=== PATIENT | female | born 1980 | race Caucasian/White ===

== ENCOUNTER 2022-02-03 14:46 | Emergency (ER) | payer SELFPAY ==
[2022-02-03] MEDS ORDERED: Ketorolac 30 MG/ML SDV IM ONE (15:19)
== END 2022-02-03 16:40 | disposition home or self-care (01) ==
LOC: JD.ED 14:46
DX: M54.42 Lumbago with sciatica, left side (principal); Z72.0 Tobacco use
CPT/HCPCS: 96372; 99283; J1885; 99284

== ENCOUNTER 2022-06-05 10:20 | Emergency (ER) | payer BC | END 2022-06-05 11:35 | disposition home or self-care (01) | LOC: JD.ED 10:20 | DX: M54.6 Pain in thoracic spine (principal); F17.210 Nicotine dependence, cigarettes, uncomplicated | CPT/HCPCS: 99282; 99283 ==

== ENCOUNTER 2022-08-13 20:03 | Emergency (ER) | payer BC ==
[2022-08-13] MEDS ORDERED: Sodium Chloride 0.9% 10 ML Syringe FLUSH PRN (20:33)
[2022-08-13] MEDS ORDERED: LORazepam 2 MG/ML SDV IVPUSH ONE (20:34)
[2022-08-13] MEDS ORDERED: levETIRAcetam 500 MG Tab PO ONE (22:48)
[2022-08-13] MEDS ORDERED: HYDROmorphone 0.5 MG/0.5 ML Syringe IVPUSH ONE (22:48)
== END 2022-08-14 00:02 | disposition home or self-care (01) ==
LOC: JD.ED 20:03 → SUPCPDRO 20:03 → JD.ED 08-14 00:02
DX: R56.9 Unspecified convulsions (principal); F17.210 Nicotine dependence, cigarettes, uncomplicated
CPT/HCPCS: 36415; 70450; 80053; 83735; 85025; 96374; 96375; 99285; A9270; J1170; J2060; 99284

== ENCOUNTER 2022-08-28 17:34 | Emergency (ER) | payer BC ==
[2022-08-28] MEDS ORDERED: LORazepam 2 MG/ML SDV ONE (17:46)
[2022-08-28] MEDS ORDERED: Sodium Chloride 0.9% 1,000 ML ONE (17:46)
[2022-08-28] MEDS ORDERED: Sodium Chloride 0.9% 1,000 ML IV ONE (17:50)
[2022-08-28] MEDS ORDERED: LORazepam 2 MG/ML SDV IVPUSH ONE (17:51)
[2022-08-28 18:37] LABS: ESTIMATED GFR 65 mL/min (>60)
[2022-08-28] MEDS ORDERED: levETIRAcetam 500 MG/5 ML SDV ONE (19:42)
[2022-08-28] MEDS ORDERED: Sodium Chloride 0.9% 100 ML ONE (19:46)
[2022-08-28] MEDS ORDERED: levETIRAcetam 1,000 MG in Sodium Chloride 0.9% 100 ML IV ONE (19:50)
== END 2022-08-28 21:58 | disposition home or self-care (01) ==
LOC: JD.ED 17:34
DX: S00.83XA Contusion of other part of head, initial encounter (principal); G40.909 Epilepsy, unspecified, not intractable, without status epilepticus; F41.9 Anxiety disorder, unspecified; W19.XXXA Unspecified fall, initial encounter
CPT/HCPCS: 36415; 70450; 71045; 80053; 82550; 83605; 85025; 93005; 96361; 96365; 96375; 99284; J1953; J2060; J7030

== ENCOUNTER 2022-09-19 22:20 | Emergency (ER) | payer BC ==
[2022-09-19] MEDS ORDERED: Sodium Chloride 0.9% 10 ML Syringe FLUSH PRN (22:38)
[2022-09-19] MEDS ORDERED: LORazepam 2 MG/ML SDV IVPUSH ONE (22:41)
[2022-09-19] MEDS ORDERED: Sodium Chloride 0.9% 1,000 ML IV SCH (22:45)
[2022-09-20] MEDS ORDERED: levETIRAcetam 1,000 MG in Sodium Chloride 0.9% 100 ML IV ONE (00:08)
== END 2022-09-20 05:59 | disposition home or self-care (01) ==
LOC: JD.ED 22:20
DX: S02.2XXA Fracture of nasal bones, initial encounter for closed fracture (principal); F17.210 Nicotine dependence, cigarettes, uncomplicated
CPT/HCPCS: 12011; 36415; 70450; 70486; 80053; 80307; 83735; 85025; 96361; 96365; 96375; 99285; J1953; J2060; J3490; J7030; 99284

== ENCOUNTER 2023-02-04 17:46 | Inpatient (IN) | payer MEDICAID ==
[2023-02-04] MEDS ORDERED: Ondansetron 4 MG/2 ML SDV IVPUSH ONE (18:36)
[2023-02-04] MEDS ORDERED: HYDROmorphone 1 MG/ML Syringe IVPUSH STA (18:36)
[2023-02-04] MEDS ORDERED: Iopamidol 612 MG/ML 100 ML Bottle IVPUSH ONE (18:49)
[2023-02-04] MEDS ORDERED: Sodium Chloride 0.9% 10 ML SDV FLUSH ONE (18:49)
[2023-02-04] MEDS: Sodium Chloride 0.9% 1,000 ML IV SCH (19:31)
[2023-02-04] MEDS ORDERED: cefOXitin 2 GM in Sodium Chloride 0.9% 50 ML IV ONE (21:15)
[2023-02-04] MEDS ORDERED: cefTRIAXone 2 GM in Sodium Chloride 0.9% 100 ML IV ONE ×2 (21:25→23:15)
[2023-02-04] MEDS ORDERED: metroNIDAZOLE/Normal Saline 500 MG in Premix Bag 1 BAG IV ONE (21:30)
[2023-02-04] MEDS: Doxycycline 100 MG in Sodium Chloride 0.9% 100 ML IV SCH (21:40)
[2023-02-04 22:49] LABS: C. TRACHOMATIS BY PCR DETECTED; N. GONORRHOEAE BY PCR NOT DETECTED
[2023-02-04] MEDS ORDERED: Morphine 2 MG/ML SYRINGE IVPUSH PRN (23:26)
[2023-02-04] MEDS: cefOXitin 2 GM in Sodium Chloride 0.9% 50 ML IV ONE ×2 (23:39→23:48)
[2023-02-05] MEDS ORDERED: HYDROmorphone 0.5 MG/0.5 ML Syringe IVPUSH PRN (02:02)
[2023-02-05] MEDS: Sodium Chloride 0.9% 1,000 ML IV SCH ×3 (02:17→15:46)
[2023-02-05] MEDS ORDERED: cefOXitin 2 GM in Sodium Chloride 0.9% 50 ML IV SCH ×2 (03:00→05:45)
[2023-02-05] MEDS: HYDROmorphone 1 MG/ML Syringe IVPUSH PRN (05:28)
[2023-02-05] MEDS: Ketorolac 30 MG/ML SDV IVPUSH SCH ×3 (08:16→20:12)
[2023-02-05] MEDS: busPIRone 5 MG Tab PO SCH ×2 (08:41→20:13)
[2023-02-05] MEDS: Gabapentin 300 MG Cap PO SCH ×2 (08:42→20:13)
[2023-02-05] MEDS: Enoxaparin 30 MG/0.3 ML Syringe SUBCUT SCH (08:42)
[2023-02-05] MEDS: Doxycycline 100 MG in Sodium Chloride 0.9% 100 ML IV SCH ×2 (08:42→20:13)
[2023-02-05] MEDS: metroNIDAZOLE/Normal Saline 500 MG in Premix Bag 1 BAG IV SCH ×2 (08:42→20:14)
[2023-02-05] MEDS ORDERED: Nicotine 14 MG/24 Hr Patch TRDERM ONE (09:00)
[2023-02-05] MEDS ORDERED: Docusate Sodium 100 MG Cap PO PRN (09:37)
[2023-02-05] MEDS: Acetaminophen/oxyCODONE 325-5 MG Tab PO PRN (11:30)
[2023-02-05] MEDS: cefOXitin 2 GM in Sodium Chloride 0.9% 50 ML IV SCH ×3 (11:32→23:29)
[2023-02-05] MEDS: Ondansetron 4 MG/2 ML SDV IVPUSH PRN (17:32)
[2023-02-06] MEDS ORDERED: Ibuprofen 600 MG Tab PO PRN (02:00)
[2023-02-06] MEDS: Acetaminophen/oxyCODONE 325-5 MG Tab PO PRN ×3 (02:42→20:06)
[2023-02-06] MEDS: cefOXitin 2 GM in Sodium Chloride 0.9% 50 ML IV SCH ×4 (05:15→23:30)
[2023-02-06] MEDS: Sodium Chloride 0.9% 1,000 ML IV SCH (06:01)
[2023-02-06] MEDS: metroNIDAZOLE/Normal Saline 500 MG in Premix Bag 1 BAG IV SCH ×2 (08:55→20:05)
[2023-02-06] MEDS: Doxycycline 100 MG in Sodium Chloride 0.9% 100 ML IV SCH ×2 (08:55→20:05)
[2023-02-06] MEDS: busPIRone 5 MG Tab PO SCH ×2 (08:55→20:06)
[2023-02-06] MEDS: Gabapentin 300 MG Cap PO SCH ×2 (08:55→20:06)
[2023-02-06] MEDS: Enoxaparin 30 MG/0.3 ML Syringe SUBCUT SCH (08:55)
[2023-02-06] MEDS: Nicotine 14 MG/24 Hr Patch TRDERM SCH (09:01)
[2023-02-06] MEDS: HYDROmorphone 1 MG/ML Syringe IVPUSH PRN (14:04)
[2023-02-06] MEDS: Ondansetron 4 MG/2 ML SDV IVPUSH PRN (15:38)
[2023-02-06] MEDS ORDERED: Promethazine 25 MG Tab PO PRN (20:32)
[2023-02-07] MEDS: cefOXitin 2 GM in Sodium Chloride 0.9% 50 ML IV SCH ×2 (05:17→11:44)
[2023-02-07] MEDS: Acetaminophen/oxyCODONE 325-5 MG Tab PO PRN ×2 (05:23→13:46)
[2023-02-07] MEDS: Doxycycline 100 MG in Sodium Chloride 0.9% 100 ML IV SCH (08:10)
[2023-02-07] MEDS: Enoxaparin 30 MG/0.3 ML Syringe SUBCUT SCH (08:16)
[2023-02-07] MEDS: busPIRone 5 MG Tab PO SCH (08:17)
[2023-02-07] MEDS: Gabapentin 300 MG Cap PO SCH (08:17)
[2023-02-07] MEDS: metroNIDAZOLE/Normal Saline 500 MG in Premix Bag 1 BAG IV SCH (08:19)
[2023-02-07] MEDS: Nicotine 14 MG/24 Hr Patch TRDERM SCH (13:56)
[2023-02-08] MEDS ORDERED: Enoxaparin 40 MG/0.4 ML Syringe SUBCUT SCH (09:00)
== END 2023-02-07 17:26 | disposition left against medical advice (07) | DRG 758 ==
LOC: JD.ED 17:46 → JD.MS 21:20
PROVIDERS: ADMIT Obstetrics & Gynecology; ATTEND Obstetrics & Gynecology
DX: N73.0 Acute parametritis and pelvic cellulitis (principal); E87.1 Hypo-osmolality and hyponatremia; A56.8 Sexually transmitted chlamydial infection of other sites; N70.93 Salpingitis and oophoritis, unspecified; F41.9 Anxiety disorder, unspecified; F32.A Depression, unspecified; M54.9 Dorsalgia, unspecified; G89.29 Other chronic pain; R56.9 Unspecified convulsions; F17.210 Nicotine dependence, cigarettes, uncomplicated; Z79.899 Other long term (current) drug therapy
CPT/HCPCS: 36415; 51702; 74177; 74177-26; 76830; 76830-26; 80053; 80307; 83690; 83735; 85025; 87040; 87491; 87591; 96361; 96365; 96368; 96375; 99284; 99285-25; A9270-GY; J0694; J1170; J1650; J1885; J2270; J2405; J3490; J7030; J8597; Q9967

== ENCOUNTER 2023-02-17 12:34 | Emergency (ER) | payer MEDICAID ==
[2023-02-17] MEDS ORDERED: HYDROmorphone 0.5 MG/0.5 ML Syringe IVPUSH ONE (14:02)
[2023-02-17] MEDS ORDERED: Ondansetron 4 MG/2 ML SDV IVPUSH ONE (14:02)
[2023-02-17] MEDS ORDERED: Sodium Chloride 0.9% 1,000 ML IV SCH (14:15)
[2023-02-17] MEDS ORDERED: Sodium Chloride 0.9% 10 ML Syringe FLUSH ONE (14:46)
[2023-02-17 15:19] LABS: ESTIMATED GFR 73 mL/min (>60)
== END 2023-02-17 17:11 | disposition home or self-care (01) ==
LOC: JD.ED 12:34
DX: R10.84 Generalized abdominal pain (principal); F17.290 Nicotine dependence, other tobacco product, uncomplicated
CPT/HCPCS: 36415; 76830; 80053; 80307; 81001; 81025; 83690; 83735; 85007; 85027; 86140; 96361; 96374; 96375; 99284; J1170; J2405; J3490; J7030

== ENCOUNTER 2023-02-19 18:06 | Emergency (ER) | payer MEDICAID ==
[2023-02-19] MEDS ORDERED: HYDROmorphone 0.5 MG/0.5 ML Syringe IVPUSH ONE (18:53)
[2023-02-19] MEDS ORDERED: Sodium Chloride 0.9% 1,000 ML IV ONE (18:53)
[2023-02-19] MEDS ORDERED: Ondansetron 4 MG/2 ML SDV IVPUSH ONE (18:53)
[2023-02-19] MEDS ORDERED: Iopamidol 612 MG/ML 100 ML Bottle IVPUSH ONE (19:31)
[2023-02-19] MEDS ORDERED: Sodium Chloride 0.9% 10 ML Syringe FLUSH ONE (19:31)
== END 2023-02-19 21:25 | disposition home or self-care (01) ==
LOC: JD.ED 18:06
DX: R10.2 Pelvic and perineal pain (principal); M54.50 Low back pain, unspecified; R10.9 Unspecified abdominal pain; M79.601 Pain in right arm; M79.602 Pain in left arm; Z79.899 Other long term (current) drug therapy
CPT/HCPCS: 36415; 74177; 80053; 81001; 85025; 96361; 96374; 96375; 99284; J1170; J2405; J3490; J7030; Q9967

== ENCOUNTER 2023-04-17 18:38 | Emergency (ER) | payer MEDICAID ==
[2023-04-17] MEDS ORDERED: LORazepam 2 MG/ML SDV IVPUSH STA (19:16)
== END 2023-04-17 20:57 | disposition left against medical advice (07) ==
LOC: JD.ED 18:38
DX: G89.29 Other chronic pain (principal); M54.50 Low back pain, unspecified; F10.929 Alcohol use, unspecified with intoxication, unspecified; F17.210 Nicotine dependence, cigarettes, uncomplicated
CPT/HCPCS: 96374; 99283; J2060

== ENCOUNTER 2023-04-18 22:52 | Emergency (ER) | payer MEDICAID | END 2023-04-19 01:08 | disposition left against medical advice (07) | LOC: JD.ED 22:52 | DX: Z53.21 Procedure and treatment not carried out due to patient leaving prior to being seen by health care provider (principal) ==

== ENCOUNTER 2023-11-04 15:58 | Inpatient (IN) | payer MEDICAID, OTHER ==
[2023-11-04] MEDS ORDERED: Sodium Chloride 0.9% 10 ML Syringe FLUSH PRN (16:09)
[2023-11-04] MEDS ORDERED: Etomidate 2 MG/ML 20 ML SDV IVPUSH ONE (16:13)
[2023-11-04] MEDS ORDERED: Succinylcholine 200 MG/10 ML MDV IVPUSH ONE (16:13)
[2023-11-04] MEDS ORDERED: Sodium Chloride 0.9% 1,000 ML IV SCH (16:15)
[2023-11-04] MEDS ORDERED: Rocuronium 50 MG/5 ML Vial IVPUSH ONE (16:15)
[2023-11-04] MEDS ORDERED: Midazolam 1 MG/ML 5 ML SDV IVPUSH ONE (16:15)
[2023-11-04 16:19] LABS: BASOPHILS PERCENT AUTO 0.4 % (0.0-1.0); EOSINOPHILS PERCENT AUTO 0.4 % (0.0-6.0); IMMATURE GRAN ABSOLUTE AUTO 0.02 K/mm3 (0.00-0.05); IMMATURE GRAN PERCENT AUTO 0.2 % (0.0-0.4); LYMPHOCYTES ABSOLUTE AUTO 4.1 K/mm3 (1.0-4.8); LYMPHOCYTES PERCENT AUTO 39.1 % (24.0-44.0); MEAN CORPUSCULAR HEMOGLOBIN 32.6 pg (28.0-32.0); MEAN CORPUSCULAR HGB CONC 34.2 g/dl (32.0-36.0); MEAN CORPUSCULAR VOLUME 95.2 fl (83.0-99.0); MEAN PLATELET VOLUME 8.5 fl (9.4-12.3); MONOCYTES ABSOLUTE AUTO 0.3 K/mm3 (0.0-0.8); MONOCYTES PERCENT AUTO 2.6 % (0.0-8.0); NEUTROPHILS ABSOLUTE AUTO 6.1 K/mm3 (1.8-7.7); NEUTROPHILS PERCENT AUTO 57.3 % (41.0-71.0); PLATELET COUNT,PLT 299 K/mm3 (150-400); RED BLOOD CELL COUNT 3.99 M/mm3 (4.10-5.30); WHITE BLOOD CELL COUNT,WBC 10.58 K/mm3 (3.9-11.3)
[2023-11-04] MEDS: propofoL 100 ML IV SCH ×2 (16:19→23:20)
[2023-11-04 16:38] LABS: INR 1.15; PROTHROMBIN TIME 12.2 SECONDS (9.7-12.0)
[2023-11-04] MEDS ORDERED: Rocuronium 50 MG/5 ML Vial ONE (16:50)
[2023-11-04] MEDS ORDERED: Midazolam 1 MG/ML 5 ML SDV ONE (16:50)
[2023-11-04 17:08] LABS: BICARBONATE,ARTERIAL 21.6 meq/L (22.0-26.0); O2 SATURATION ARTERIAL 97.3 % (96.0-97.0); PCO2 ARTERIAL 39.3 mmHg (35.0-45.0)
[2023-11-04 17:16] LABS: BARBITURATE SCREEN,URINE NEGATIVE (CUTOFF=200); BENZODIAZEPINES SCREEN,URINE NEGATIVE (CUTOFF=150); BUPRENORPHINE SCREEN,URINE NEGATIVE (CUTOFF=10); METHADONE SCREEN, URINE NEGATIVE (CUTOFF=200); METHAMPHETAMINES SCREEN, URINE NEGATIVE (CUTOFF=500); OXYCODONE SCREEN,URINE NEGATIVE (CUT0FF=100); THC SCREEN,URINE 20 NG/ML PRESUMPTIVE POSITIVE (CUTOFF=50)
[2023-11-04 17:20] LABS: AMPHETAMINES SCREEN, URINE NEGATIVE (CUTOFF=500)
[2023-11-04 17:23] LABS: APPEARANCE,URINE CLEAR (Clear); BILIRUBIN,URINE NEGATIVE (Negative); COLOR,URINE LIGHT YELLOW (Yellow); GLUCOSE,URINE NEGATIVE (Negative); KETONES,URINE NEGATIVE (Negative); LEUKOCYTE ESTERASE,URINE NEGATIVE (Negative); NITRITE,URINE NEGATIVE (Negative); OCCULT BLOOD,URINE TRACE-INTACT (Negative); PH,URINE 6.5 (5.0-8.0); PROTEIN,URINE NEGATIVE (Negative); UROBILINOGEN,URINE 0.2 (0.2-1.0)
[2023-11-04 17:30] LABS: BACTERIA,URINE FEW /hpf (FEW); MUCUS,URINE FEW /hpf (FEW); RBC,URINE 0-5 /hpf (0-5); SQUAMOUS EPITHELIAL CELLS,UR 0-5 /hpf (0-5); WBC,URINE 0-5 /hpf (0-5)
[2023-11-04 17:58] LABS: ALANINE AMINOTRANSFERASE,ALT 19 U/L (14-59); ALBUMIN 3.9 g/dl (3.4-5.0); ALKALINE PHOSPHATASE 41 U/L (46-116); ANION GAP 15.8 (5-15); ASPARTATE AMNIOTRANSFERASE,AST 22 U/L (15-37); BILIRUBIN TOTAL 1.1 mg/dL (0.2-1.0); BLOOD UREA NITROGEN,BUN 11 mg/dL (7-18); BUN/CREATININE RATIO 18.3 (14-18); C-REACTIVE PROTEIN <0.2 mg/dL (<1.0); CALCIUM 8.3 mg/dL (8.5-10.1); CARBON DIOXIDE,CO2 24 mEq/L (21-32); CHLORIDE,CL 106 mEq/L (98-107); CREATININE 0.6 mg/dL (0.55-1.02); EST CRCL DRUG DOSING (CG) 119.99 mL/min; ESTIMATED GFR 116 mL/min (>60); ETHANOL BLOOD MEDICAL 0.26 gm% (0.00); GLUCOSE RANDOM 98 mg/dL (70-99); LIPASE 31 U/L (16-77); MAGNESIUM 1.7 mg/dL (1.8-2.4); POTASSIUM,K 3.8 mEq/L (3.5-5.1); PROTEIN TOTAL,TP 7.7 g/dl (6.4-8.2); SODIUM,NA 142 mEq/L (136-145); TROPONIN I HIGH SENSITIVITY 7 pg/mL (<=51)
[2023-11-04 18:01] LABS: ACETAMINOPHEN 0 ug/mL (10-30)
[2023-11-04] MEDS ORDERED: Thiamine 200 MG/2 ML MDV IVPUSH ONE (19:32)
[2023-11-04] MEDS ORDERED: Dextrose 5%-0.9% NaCl with KCl 1,000 ML IV SCH (19:45)
[2023-11-04] MEDS: Midazolam 50 MG in Sodium Chloride 0.9% 40 ML IV SCH (19:58)
[2023-11-04] MEDS: Pantoprazole 40 MG Vial IVPUSH ONE ×2 (20:44→21:00)
[2023-11-04] MEDS ORDERED: Pantoprazole 40 MG Vial IVPUSH ONE (20:58)
[2023-11-04 21:16] LABS: BASE EXCESS ARTERIAL -0.4 (-2-2.0); BICARBONATE,ARTERIAL 23.7 meq/L (22.0-26.0); O2 SATURATION ARTERIAL 99.4 % (96.0-97.0); PCO2 ARTERIAL 38.9 mmHg (35.0-45.0)
[2023-11-05] MEDS: propofoL 100 ML IV SCH ×2 (01:57→04:51)
[2023-11-05] MEDS: Midazolam 50 MG in Sodium Chloride 0.9% 40 ML IV SCH (04:57)
[2023-11-05 05:41] LABS: BASE EXCESS ARTERIAL -0.5 (-2-2.0); BICARBONATE,ARTERIAL 23.7 meq/L (22.0-26.0); O2 SATURATION ARTERIAL 95.7 % (96.0-97.0); PCO2 ARTERIAL 39.5 mmHg (35.0-45.0)
[2023-11-05 06:27] LABS: HEMATOCRIT 40.4 % (37.0-47.0); HEMOGLOBIN 14.5 gm/dl (12.0-16.0); MEAN CORPUSCULAR HEMOGLOBIN 33.1 pg (28.0-32.0); MEAN CORPUSCULAR HGB CONC 35.9 g/dl (32.0-36.0); MEAN CORPUSCULAR VOLUME 92.2 fl (83.0-99.0); MEAN PLATELET VOLUME 8.6 fl (9.4-12.3); PLATELET COUNT,PLT 290 K/mm3 (150-400); RED BLOOD CELL COUNT 4.38 M/mm3 (4.10-5.30); WHITE BLOOD CELL COUNT,WBC 19.61 K/mm3 (3.9-11.3)
[2023-11-05 07:29] LABS: A/G RATIO 1.2 (1-2); ALBUMIN 3.6 g/dl (3.4-5.0); ANION GAP 16.4 (5-15); BILIRUBIN TOTAL 0.8 mg/dL (0.2-1.0); CALCIUM 8.1 mg/dL (8.5-10.1); CREATININE 0.8 mg/dL (0.55-1.02); EST CRCL DRUG DOSING (CG) 78.86 mL/min; MAGNESIUM 1.6 mg/dL (1.8-2.4); POTASSIUM,K 3.4 mEq/L (3.5-5.1); PROTEIN TOTAL,TP 6.6 g/dl (6.4-8.2)
[2023-11-05] MEDS ORDERED: D5 1/2 NS w/ 20 mEq/L KCl 1,000 ML IV SCH (07:45)
[2023-11-05] MEDS ORDERED: Magnesium Sulfate/Water 2 GM in Premix Bag 1 BAG IV ONE (07:45)
[2023-11-05] MEDS: Pantoprazole 40 MG Vial IVPUSH SCH ×2 (08:09→19:19)
[2023-11-05] MEDS ORDERED: fentaNYL 100 MCG/2 ML SDV IVPUSH STA (08:21)
[2023-11-05] MEDS ORDERED: Thiamine 200 MG/2 ML MDV IVPUSH SCH (09:00)
[2023-11-05] MEDS ORDERED: Thiamine 200 MG in Sodium Chloride 0.9% 100 ML IV SCH (09:00)
[2023-11-05 09:36] LABS: BASE EXCESS ARTERIAL -1.3 (-2-2.0); BICARBONATE,ARTERIAL 22.2 meq/L (22.0-26.0); O2 SATURATION ARTERIAL 93.9 % (96.0-97.0); PCO2 ARTERIAL 35.3 mmHg (35.0-45.0)
[2023-11-05] MEDS ORDERED: Alum Hydrox/Mag Hydrox/Simeth 30 ML, Lidocaine 2% 15 ML PO ONE ×2 (11:06)
[2023-11-05] MEDS: Benzocaine/Cetylpyridinium/Menthol Lozenge MUCMEM PRN ×2 (11:26→19:19)
[2023-11-05] MEDS ORDERED: Carboxymethylcellulose Sodium 1% Ophth Gel 15 ML Bottle EYELF PRN (11:44)
[2023-11-05] MEDS: Acetaminophen 325 MG Tab PO PRN ×2 (13:26→19:19)
[2023-11-05 14:43] LABS: ANION GAP 14.6 (5-15); CREATININE 0.9 mg/dL (0.55-1.02); EST CRCL DRUG DOSING (CG) 70.1 mL/min; POTASSIUM,K 3.6 mEq/L (3.5-5.1)
[2023-11-05] MEDS: oxyCODONE 5 MG Tab PO PRN (16:41)
[2023-11-05] MEDS: Nicotine 14 MG/24 Hr Patch TRDERM SCH (17:55)
[2023-11-05] MEDS: Folic Acid 1 MG Tab PO SCH (18:43)
[2023-11-05] MEDS ORDERED: LORazepam 2 MG/ML SDV IVPUSH PRN (19:01)
[2023-11-05] MEDS: Topiramate 25 MG Tab PO SCH (20:16)
[2023-11-06] MEDS: oxyCODONE 5 MG Tab PO PRN ×3 (00:48→16:28)
[2023-11-06] MEDS: Benzocaine/Cetylpyridinium/Menthol Lozenge MUCMEM PRN ×2 (00:50→16:05)
[2023-11-06 05:24] LABS: HEMATOCRIT 36.7 % (37.0-47.0); HEMOGLOBIN 13.1 gm/dl (12.0-16.0); MEAN CORPUSCULAR HEMOGLOBIN 33.2 pg (28.0-32.0); MEAN CORPUSCULAR HGB CONC 35.7 g/dl (32.0-36.0); MEAN CORPUSCULAR VOLUME 92.9 fl (83.0-99.0); MEAN PLATELET VOLUME 8.8 fl (9.4-12.3); PLATELET COUNT,PLT 200 K/mm3 (150-400); RED BLOOD CELL COUNT 3.95 M/mm3 (4.10-5.30); WHITE BLOOD CELL COUNT,WBC 14.05 K/mm3 (3.9-11.3)
[2023-11-06 06:12] LABS: A/G RATIO 0.9 (1-2); ANION GAP 10.5 (5-15); BILIRUBIN TOTAL 1.6 mg/dL (0.2-1.0); BUN/CREATININE RATIO 11.4 (14-18); CALCIUM 8.4 mg/dL (8.5-10.1); CREATININE 0.7 mg/dL (0.55-1.02); EST CRCL DRUG DOSING (CG) 90.12 mL/min; MAGNESIUM 1.9 mg/dL (1.8-2.4); POTASSIUM,K 3.5 mEq/L (3.5-5.1); PROTEIN TOTAL,TP 6.2 g/dl (6.4-8.2)
[2023-11-06] MEDS: Folic Acid 1 MG Tab PO SCH (08:13)
[2023-11-06] MEDS: Topiramate 25 MG Tab PO SCH ×2 (08:13→20:00)
[2023-11-06] MEDS: Pantoprazole 40 MG Tab.CR PO SCH ×2 (08:13→16:05)
[2023-11-06] MEDS: Nicotine 14 MG/24 Hr Patch TRDERM SCH (08:14)
[2023-11-06] MEDS: Acetaminophen 325 MG Tab PO PRN ×2 (08:14→16:27)
[2023-11-06] MEDS ORDERED: DULoxetine 20 MG Cap PO SCH (09:00)
[2023-11-06] MEDS: Cholecalciferol (Vitamin D3) 25 MCG Tab PO SCH (10:48)
[2023-11-06] MEDS ORDERED: Loperamide 2 MG Cap PO PRN (13:26)
[2023-11-06] MEDS ORDERED: methylPREDNISolone Sodium Succinate 125 MG/2 ML SDV IVPUSH ONE (14:54)
[2023-11-06] MEDS ORDERED: Vitamin B6-pyridOXINE 50 MG Tab PO SCH (21:00)
[2023-11-06] MEDS ORDERED: QUEtiapine 25 MG Tab PO SCH (21:00)
[2023-11-06] MEDS ORDERED: fluvoxaMINE 50 MG Tab PO SCH (21:00)
[2023-11-06] MEDS ORDERED: Thiamine 100 MG Tab PO SCH (21:00)
[2023-11-06] MEDS ORDERED: Cyanocobalamin (Vitamin B12) 1,000 MCG Tab PO SCH (21:00)
[2023-11-07] MEDS: oxyCODONE 5 MG Tab PO PRN ×2 (04:41→12:17)
[2023-11-07 04:44] LABS: HEMATOCRIT 35.8 % (37.0-47.0); HEMOGLOBIN 12.7 gm/dl (12.0-16.0); MEAN CORPUSCULAR HEMOGLOBIN 32.8 pg (28.0-32.0); MEAN CORPUSCULAR HGB CONC 35.5 g/dl (32.0-36.0); MEAN CORPUSCULAR VOLUME 92.5 fl (83.0-99.0); MEAN PLATELET VOLUME 9.1 fl (9.4-12.3); PLATELET COUNT,PLT 166 K/mm3 (150-400); RED BLOOD CELL COUNT 3.87 M/mm3 (4.10-5.30); WHITE BLOOD CELL COUNT,WBC 8.19 K/mm3 (3.9-11.3)
[2023-11-07 05:27] LABS: A/G RATIO 0.8 (1-2); ALBUMIN 2.7 g/dl (3.4-5.0); ANION GAP 11.6 (5-15); BILIRUBIN TOTAL 0.7 mg/dL (0.2-1.0); BUN/CREATININE RATIO 11.7 (14-18); CALCIUM 8.4 mg/dL (8.5-10.1); CREATININE 0.6 mg/dL (0.55-1.02); EST CRCL DRUG DOSING (CG) 105.41 mL/min; MAGNESIUM 1.7 mg/dL (1.8-2.4); PROTEIN TOTAL,TP 6.1 g/dl (6.4-8.2)
[2023-11-07 05:39] LABS: POTASSIUM,K 3.6 mEq/L (3.5-5.1)
[2023-11-07] MEDS ORDERED: Magnesium Sulfate/Water 2 GM in Premix Bag 1 BAG IV ONE (05:49)
[2023-11-07] MEDS: Pantoprazole 40 MG Tab.CR PO SCH ×2 (06:26→15:48)
[2023-11-07] MEDS: Topiramate 25 MG Tab PO SCH (08:21)
[2023-11-07] MEDS: Cholecalciferol (Vitamin D3) 25 MCG Tab PO SCH (08:21)
[2023-11-07] MEDS: Folic Acid 1 MG Tab PO SCH (08:21)
[2023-11-07] MEDS: Nicotine 14 MG/24 Hr Patch TRDERM SCH (08:21)
[2023-11-07] MEDS: Acetaminophen 325 MG Tab PO PRN (12:18)
== END 2023-11-07 16:18 | disposition home or self-care (01) | DRG 917 ==
LOC: JD.ED 15:58 → JD.ICU 19:04
PROVIDERS: ADMIT Internal Medicine; ATTEND Internal Medicine
PROC: 0BH17EZ Insertion of Endotracheal Airway into Trachea, Via Natural or Artificial Opening (ICD-10-PCS; principal; 2023-11-04)
PROC: 5A1935Z Respiratory Ventilation, Less than 24 Consecutive Hours (ICD-10-PCS; 2023-11-04)
PROC: 0DH67UZ Insertion of Feeding Device into Stomach, Via Natural or Artificial Opening (ICD-10-PCS; 2023-11-04)
DX: T40.2X2A Poisoning by other opioids, intentional self-harm, initial encounter (principal); J96.01 Acute respiratory failure with hypoxia; F10.221 Alcohol dependence with intoxication delirium; F31.60 Bipolar disorder, current episode mixed, unspecified; G89.29 Other chronic pain; F11.10 Opioid abuse, uncomplicated; T14.91XA Suicide attempt, initial encounter; Z87.440 Personal history of urinary (tract) infections; F41.9 Anxiety disorder, unspecified; F12.20 Cannabis dependence, uncomplicated; F42.2 Mixed obsessional thoughts and acts; F43.10 Post-traumatic stress disorder, unspecified; Z90.89 Acquired absence of other organs; Z98.890 Other specified postprocedural states; Z56.0 Unemployment, unspecified; Y90.0 Blood alcohol level of less than 20 mg/100 ml; Z79.899 Other long term (current) drug therapy
CPT/HCPCS: 31500; 36415; 36600; 43752-52; 51702; 70450; 70450-26; 71045; 71045-26; 80048; 80053; 80143; 80179; 80306; 80307; 81001; 82803; 82947; 83605; 83690; 83735; 84484; 84703; 85018; 85025; 85027; 85610; 86140; 86850; 86900; 86901; 93005; 93010; 94668; 96360; 96361; 97161-GP; 99285-25; 99291; A9270-GY; C9113; J0330; J2250; J2704; J3010; J3411; J3475; J3480; J3490; J7030

== ENCOUNTER 2024-02-23 16:10 | Emergency (ER) | payer SELFPAY ==
[2024-02-23 17:28] LABS: BASOPHILS ABSOLUTE AUTO 0.1 K/mm3 (0.0-0.2); BASOPHILS PERCENT AUTO 0.6 % (0.0-1.0); EOSINOPHILS ABSOLUTE AUTO 0.2 K/mm3 (0.0-0.4); EOSINOPHILS PERCENT AUTO 1.9 % (0.0-6.0); HEMATOCRIT 47.1 % (37.0-47.0); IMMATURE GRAN ABSOLUTE AUTO 0.03 K/mm3 (0.00-0.05); IMMATURE GRAN PERCENT AUTO 0.2 % (0.0-0.4); LYMPHOCYTES ABSOLUTE AUTO 4.8 K/mm3 (1.0-4.8); LYMPHOCYTES PERCENT AUTO 37.6 % (24.0-44.0); MEAN CORPUSCULAR HEMOGLOBIN 32.4 pg (28.0-32.0); MEAN CORPUSCULAR HGB CONC 35.7 g/dl (32.0-36.0); MEAN CORPUSCULAR VOLUME 90.9 fl (83.0-99.0); MEAN PLATELET VOLUME 8.1 fl (9.4-12.3); MONOCYTES ABSOLUTE AUTO 0.6 K/mm3 (0.0-0.8); MONOCYTES PERCENT AUTO 4.6 % (0.0-8.0); NEUTROPHILS PERCENT AUTO 55.1 % (41.0-71.0); RED BLOOD CELL COUNT 5.18 M/mm3 (4.10-5.30); WHITE BLOOD CELL COUNT,WBC 12.69 K/mm3 (3.9-11.3)
[2024-02-23 17:30] LABS: HEMOGLOBIN 16.8 gm/dl (12.0-16.0); PLATELET COUNT,PLT 389 K/mm3 (150-400)
[2024-02-23] MEDS: Metoclopramide 10 MG/2 ML SDV IVPUSH ONE (17:35)
[2024-02-23] MEDS: LORazepam 2 MG/ML SDV IVPUSH ONE (17:35)
[2024-02-23] MEDS: Thiamine 200 MG/2 ML MDV IVPUSH ONE (17:36)
[2024-02-23] MEDS: levETIRAcetam 500 MG in Sodium Chloride 0.9% 100 ML IV ONE (17:36)
[2024-02-23 17:45] LABS: INR 1.1; PROTHROMBIN TIME 11.7 SECONDS (9.7-12.0)
[2024-02-23 17:54] LABS: HEPATITIS C AB NON-REACTIVE (Non-React)
[2024-02-23] MEDS: Dextrose 5%-Lactated Ringers 1,000 ML IV SCH (17:54)
[2024-02-23 17:55] LABS: A/G RATIO 1.3 (1-2); ALANINE AMINOTRANSFERASE,ALT 22 U/L (14-59); ALBUMIN 4.4 g/dl (3.4-5.0); ALKALINE PHOSPHATASE 67 U/L (46-116); ANION GAP 20.8 (5-15); ASPARTATE AMNIOTRANSFERASE,AST 23 U/L (15-37); BLOOD UREA NITROGEN,BUN 8 mg/dL (7-18); BUN/CREATININE RATIO 8.9 (14-18); C-REACTIVE PROTEIN <0.05 mg/dL (<0.30); CALCIUM 9.1 mg/dL (8.5-10.1); CARBON DIOXIDE,CO2 20 mEq/L (21-32); CHLORIDE,CL 101 mEq/L (98-107); CREATININE 0.9 mg/dL (0.55-1.02); EST CRCL DRUG DOSING (CG) 66.91 mL/min; ESTIMATED GFR 82 mL/min (>60); ETHANOL BLOOD MEDICAL 0.12 gm% (0.00); GLUCOSE RANDOM 93 mg/dL (70-99); LIPASE 27 U/L (16-77); MAGNESIUM 1.4 mg/dL (1.8-2.4); POTASSIUM,K 3.8 mEq/L (3.5-5.1); PRO B-TYPE NATRIUR PEPT,BNPPRO 14 pg/mL (0-125); PROTEIN TOTAL,TP 7.8 g/dl (6.4-8.2); SODIUM,NA 138 mEq/L (136-145)
[2024-02-23 17:56] LABS: HCG QUALITATIVE,SERUM NEGATIVE (NEGATIVE)
[2024-02-23] MEDS: HYDROmorphone 0.5 MG/0.5 ML Syringe IVPUSH ONE ×2 (18:04→18:26)
[2024-02-23 18:20] LABS: APPEARANCE,URINE CLEAR (Clear); BILIRUBIN,URINE NEGATIVE (Negative); COLOR,URINE YELLOW (Yellow); GLUCOSE,URINE NEGATIVE (Negative); KETONES,URINE NEGATIVE (Negative); LEUKOCYTE ESTERASE,URINE 2+ (Negative); NITRITE,URINE NEGATIVE (Negative); OCCULT BLOOD,URINE TRACE-LYSED (Negative); PH,URINE 6.5 (5.0-8.0); PROTEIN,URINE NEGATIVE (Negative); UROBILINOGEN,URINE 0.2 (0.2-1.0)
[2024-02-23] MEDS: Magnesium Sulfate/Water 4 GM in Premix Bag 1 BAG IV ONE (18:26)
[2024-02-23 18:30] LABS: BARBITURATE SCREEN,URINE NEGATIVE (CUTOFF=200); BENZODIAZEPINES SCREEN,URINE NEGATIVE (CUTOFF=150); BUPRENORPHINE SCREEN,URINE NEGATIVE (CUTOFF=10); METHADONE SCREEN, URINE NEGATIVE (CUTOFF=200); METHAMPHETAMINES SCREEN, URINE NEGATIVE (CUTOFF=500); OXYCODONE SCREEN,URINE NEGATIVE (CUT0FF=100); THC SCREEN,URINE 20 NG/ML NEGATIVE (CUTOFF=50)
[2024-02-23 18:34] LABS: RBC,URINE 0-5 /hpf (0-5)
[2024-02-23 18:35] LABS: BACTERIA,URINE MODERATE /hpf (FEW); MUCUS,URINE RARE /hpf (FEW); TRICHOMONAS,URINE PRESENT (NOT SEEN)
[2024-02-23 19:18] LABS: AMPHETAMINES SCREEN, URINE NEGATIVE (CUTOFF=500)
[2024-02-23] MEDS: Lactated Ringers 1,000 ML IV SCH (19:20)
[2024-02-23] MEDS: Folic Acid 1 MG Tab PO ONE (21:41)
[2024-02-23] MEDS: Famotidine 20 MG/2 ML SDV IVPUSH ONE (21:41)
[2024-02-23] MEDS: cefTRIAXone 1 GM in Sodium Chloride 0.9% 100 ML IV ONE (21:56)
[2024-02-23] MEDS: Dextrose 5%-0.9% NaCl with KCl 1,000 ML IV SCH (21:56)
[2024-02-24] MEDS: Acetaminophen 325 MG Tab PO ONE (00:06)
[2024-02-24] MEDS: LORazepam 2 MG/ML SDV IVPUSH ONE (07:36)
[2024-02-24] MEDS: Metoclopramide 10 MG/2 ML SDV IVPUSH ONE (07:38)
[2024-02-24] MEDS: Ketorolac 30 MG/ML SDV IVPUSH ONE (07:42)
[2024-02-24] MEDS: levETIRAcetam 500 MG Tab PO ONE (10:11)
== END 2024-02-24 13:55 ==
LOC: JD.ED 16:10
DX: F10.230 Alcohol dependence with withdrawal, uncomplicated (principal); Y90.9 Presence of alcohol in blood, level not specified; Z79.899 Other long term (current) drug therapy
CPT/HCPCS: 36415; 71045; 71045-26; 80053; 80306; 80307; 81001; 82010; 83605; 83690; 83735; 83880; 84703; 85025; 85610; 85730; 86140; 86803; 87040; 87086; 99284; 99285; A9270-GY; J0696; J1170; J1885; J1953; J2060; J2765; J3411; J3475; J3480; J3490; J7120; J7121

== ENCOUNTER 2024-02-25 10:19 | Emergency (ER) | payer SELFPAY ==
[2024-02-25] MEDS ORDERED: Sodium Chloride 0.9% 10 ML Syringe FLUSH PRN (10:48)
[2024-02-25 11:45] LABS: BASOPHILS PERCENT AUTO 0.7 % (0.0-1.0); EOSINOPHILS ABSOLUTE AUTO 0.1 K/mm3 (0.0-0.4); EOSINOPHILS PERCENT AUTO 1.6 % (0.0-6.0); HEMATOCRIT 42.6 % (37.0-47.0); IMMATURE GRAN ABSOLUTE AUTO 0.02 K/mm3 (0.00-0.05); IMMATURE GRAN PERCENT AUTO 0.3 % (0.0-0.4); LYMPHOCYTES ABSOLUTE AUTO 1.7 K/mm3 (1.0-4.8); LYMPHOCYTES PERCENT AUTO 29.8 % (24.0-44.0); MEAN CORPUSCULAR HEMOGLOBIN 32.5 pg (28.0-32.0); MEAN CORPUSCULAR VOLUME 92.8 fl (83.0-99.0); MEAN PLATELET VOLUME 8.7 fl (9.4-12.3); MONOCYTES ABSOLUTE AUTO 0.3 K/mm3 (0.0-0.8); MONOCYTES PERCENT AUTO 5.9 % (0.0-8.0); NEUTROPHILS ABSOLUTE AUTO 3.6 K/mm3 (1.8-7.7); NEUTROPHILS PERCENT AUTO 61.7 % (41.0-71.0); RED BLOOD CELL COUNT 4.59 M/mm3 (4.10-5.30); WHITE BLOOD CELL COUNT,WBC 5.77 K/mm3 (3.9-11.3)
[2024-02-25 11:47] LABS: HEMOGLOBIN 14.9 gm/dl (12.0-16.0); PLATELET COUNT,PLT 311 K/mm3 (150-400)
[2024-02-25 12:13] LABS: A/G RATIO 1.2 (1-2); ALBUMIN 4.2 g/dl (3.4-5.0); ANION GAP 19.2 (5-15); BILIRUBIN TOTAL 0.5 mg/dL (0.2-1.0); BUN/CREATININE RATIO 7.5 (14-18); CALCIUM 8.9 mg/dL (8.5-10.1); CREATININE 0.8 mg/dL (0.55-1.02); EST CRCL DRUG DOSING (CG) 78.92 mL/min; ETHANOL BLOOD MEDICAL 0.13 gm% (0.00); MAGNESIUM 1.8 mg/dL (1.8-2.4); POTASSIUM,K 4.2 mEq/L (3.5-5.1); PROTEIN TOTAL,TP 7.8 g/dl (6.4-8.2)
[2024-02-25] MEDS: HYDROmorphone 0.5 MG/0.5 ML Syringe IVPUSH ONE (12:21)
[2024-02-25] MEDS: Ondansetron 4 MG/2 ML SDV IVPUSH ONE (12:21)
[2024-02-25] MEDS: Sodium Chloride 0.9% 1,000 ML IV STA (12:21)
[2024-02-25 12:54] LABS: APPEARANCE,URINE CLEAR (Clear); BILIRUBIN,URINE NEGATIVE (Negative); COLOR,URINE YELLOW (Yellow); GLUCOSE,URINE NEGATIVE (Negative); KETONES,URINE NEGATIVE (Negative); LEUKOCYTE ESTERASE,URINE TRACE (Negative); NITRITE,URINE NEGATIVE (Negative); OCCULT BLOOD,URINE TRACE-INTACT (Negative); PH,URINE 6.5 (5.0-8.0); PROTEIN,URINE NEGATIVE (Negative); UROBILINOGEN,URINE 0.2 (0.2-1.0)
[2024-02-25 13:00] LABS: EPITHELIAL CELLS,URINE 0-5 /hpf (0-5); RBC,URINE 0-5 /hpf (0-5); WBC,URINE 0-5 /hpf (0-5)
[2024-02-25 13:01] LABS: BACTERIA,URINE FEW /hpf (FEW); MUCUS,URINE RARE /hpf (FEW)
[2024-02-25 13:07] LABS: BARBITURATE SCREEN,URINE NEGATIVE (CUTOFF=200); BENZODIAZEPINES SCREEN,URINE PRESUMPTIVE POSITIVE (CUTOFF=150); BUPRENORPHINE SCREEN,URINE NEGATIVE (CUTOFF=10); METHADONE SCREEN, URINE NEGATIVE (CUTOFF=200); METHAMPHETAMINES SCREEN, URINE NEGATIVE (CUTOFF=500); OXYCODONE SCREEN,URINE NEGATIVE (CUT0FF=100); THC SCREEN,URINE 20 NG/ML NEGATIVE (CUTOFF=50)
[2024-02-25 13:08] LABS: AMPHETAMINES SCREEN, URINE NEGATIVE (CUTOFF=500)
== END 2024-02-25 14:10 | disposition home or self-care (01) ==
LOC: JD.ED 10:19
DX: R10.31 Right lower quadrant pain (principal); F10.120 Alcohol abuse with intoxication, uncomplicated; M54.50 Low back pain, unspecified; F17.210 Nicotine dependence, cigarettes, uncomplicated; Z79.899 Other long term (current) drug therapy
CPT/HCPCS: 36415; 74176; 74176-26; 80053; 80306; 80307; 81001; 83735; 84703; 85025; 96361; 96374; 96375; 99284-25; J1170; J2405; J7030

== ENCOUNTER 2024-04-07 11:08 | Emergency (ER) | payer MEDICAID ==
[2024-04-07] MEDS: Sodium Chloride 0.9% 1,000 ML IV ONE ×2 (11:46→15:19)
[2024-04-07] MEDS: Pantoprazole 40 MG Vial IVPUSH ONE (11:47)
[2024-04-07] MEDS: Metoclopramide 10 MG/2 ML SDV IVPUSH ONE (11:47)
[2024-04-07 11:55] LABS: BASOPHILS PERCENT AUTO 0.4 % (0.0-1.0); EOSINOPHILS PERCENT AUTO 0.1 % (0.0-6.0); HEMATOCRIT 45.5 % (37.0-47.0); HEMOGLOBIN 15.9 gm/dl (12.0-16.0); IMMATURE GRAN ABSOLUTE AUTO 0.04 K/mm3 (0.00-0.05); IMMATURE GRAN PERCENT AUTO 0.4 % (0.0-0.4); LYMPHOCYTES ABSOLUTE AUTO 2.5 K/mm3 (1.0-4.8); LYMPHOCYTES PERCENT AUTO 23.3 % (24.0-44.0); MEAN CORPUSCULAR HEMOGLOBIN 32.2 pg (28.0-32.0); MEAN CORPUSCULAR HGB CONC 34.9 g/dl (32.0-36.0); MEAN CORPUSCULAR VOLUME 92.1 fl (83.0-99.0); MEAN PLATELET VOLUME 8.6 fl (9.4-12.3); MONOCYTES ABSOLUTE AUTO 0.6 K/mm3 (0.0-0.8); MONOCYTES PERCENT AUTO 5.3 % (0.0-8.0); NEUTROPHILS ABSOLUTE AUTO 7.7 K/mm3 (1.8-7.7); NEUTROPHILS PERCENT AUTO 70.5 % (41.0-71.0); PLATELET COUNT,PLT 300 K/mm3 (150-400); RED BLOOD CELL COUNT 4.94 M/mm3 (4.10-5.30)
[2024-04-07 12:01] LABS: INR 0.99; PROTHROMBIN TIME 10.6 SECONDS (9.7-12.0)
[2024-04-07 12:04] LABS: A/G RATIO 1.3 (1-2); ALBUMIN 4.4 g/dl (3.4-5.0); ANION GAP 17.2 (5-15); BILIRUBIN TOTAL 0.3 mg/dL (0.2-1.0); CALCIUM 9.1 mg/dL (8.5-10.1); CREATININE 0.8 mg/dL (0.55-1.02); EST CRCL DRUG DOSING (CG) 81.08 mL/min; ETHANOL BLOOD MEDICAL 0.33 gm% (0.00); PHOSPHORUS 2.3 mg/dL (2.6-4.7); POTASSIUM,K 3.2 mEq/L (3.5-5.1); PROTEIN TOTAL,TP 7.9 g/dl (6.4-8.2)
[2024-04-07 12:13] LABS: APPEARANCE,URINE SLT CLOUDY (Clear); BILIRUBIN,URINE NEGATIVE (Negative); COLOR,URINE LIGHT YELLOW (Yellow); GLUCOSE,URINE NEGATIVE (Negative); KETONES,URINE NEGATIVE (Negative); LEUKOCYTE ESTERASE,URINE TRACE (Negative); NITRITE,URINE NEGATIVE (Negative); OCCULT BLOOD,URINE NEGATIVE (Negative); PH,URINE 6.5 (5.0-8.0); PROTEIN,URINE NEGATIVE (Negative); UROBILINOGEN,URINE 0.2 (0.2-1.0)
[2024-04-07 12:55] LABS: RBC,URINE 0-5 /hpf (0-5); WBC,URINE 0-5 /hpf (0-5)
[2024-04-07 12:56] LABS: BACTERIA,URINE FEW /hpf (FEW); MUCUS,URINE NOT SEEN /hpf (FEW)
[2024-04-07 13:00] LABS: AMPHETAMINES SCREEN, URINE NEGATIVE (CUTOFF=500); THC SCREEN,URINE 20 NG/ML PRESUMPTIVE POSITIVE (CUTOFF=50)
[2024-04-07 13:01] LABS: BARBITURATE SCREEN,URINE NEGATIVE (CUTOFF=200); BENZODIAZEPINES SCREEN,URINE NEGATIVE (CUTOFF=150); BUPRENORPHINE SCREEN,URINE NEGATIVE (CUTOFF=10); METHADONE SCREEN, URINE NEGATIVE (CUTOFF=200); METHAMPHETAMINES SCREEN, URINE NEGATIVE (CUTOFF=500); OXYCODONE SCREEN,URINE NEGATIVE (CUT0FF=100)
[2024-04-07] MEDS: chlordiazePOXIDE 25 MG Cap PO ONE (13:48)
[2024-04-07] MEDS: cloNIDine 0.1 MG Tab PO ONE (13:48)
[2024-04-07] MEDS: NS + KCl 20mEq/L 1,000 ML IV SCH (13:49)
[2024-04-07] MEDS: cefTRIAXone 1 GM in Sodium Chloride 0.9% 100 ML IV ONE (15:20)
[2024-04-07] MEDS: LORazepam 0.5 MG Tab PO ONE (16:07)
[2024-04-07] MEDS: Phosphorus #1 250 MG Tab PO ONE (16:14)
== END 2024-04-07 22:13 ==
LOC: JD.ED 11:08
DX: F10.231 Alcohol dependence with withdrawal delirium (principal); F10.221 Alcohol dependence with intoxication delirium; N30.00 Acute cystitis without hematuria; F12.10 Cannabis abuse, uncomplicated; Y90.8 Blood alcohol level of 240 mg/100 ml or more; F17.210 Nicotine dependence, cigarettes, uncomplicated; Z79.899 Other long term (current) drug therapy
CPT/HCPCS: 36415; 80053; 80143; 80179; 80306; 80307; 81001; 81003; 83690; 83735; 84100; 85025; 85610; 87086; 96361; 96365; 96366; 96368; 96375; 99285; A9270; C9113; J0696; J2765; J3480; J3490; J7030

== ENCOUNTER 2024-05-26 07:33 | Day surgery (SDC) | payer MEDICAID ==
[~2024-05-26 07:33] MED LIST: Dexamethasone 4 MG/ML 5 ML MDV ONE; Lidocaine 1% 5 ML VIAL ONE; Midazolam 1 MG/ML 2 ML SDV ONE; Ondansetron 4 MG/2 ML SDV ONE; Propofol 200 MG/20 ML SDV ONE; Rocuronium 50 MG/5 ML Vial ONE; Sodium Chloride 0.9% 10 ML Syringe FLUSH PRN; Sodium Chloride 0.9% 10 ML Syringe FLUSH SCH; ceFAZolin 2 GM Vial ONE; dexmedeTOMIDine HCl 200 MCG/2 ML SDV ONE; fentaNYL 250 MCG/5 ML SDV ONE
[2024-05-26] MEDS: Lactated Ringers 1,000 ML IV SCH (08:15)
[2024-05-26] MEDS ORDERED: Ketamine 200 MG/20 ML MDV ONE (08:27)
[2024-05-26] MEDS ORDERED: Albuterol 0.083% 2.5 MG/3 ML Neb Soln NEB SCH (08:34)
[2024-05-26 08:45] LABS: APPEARANCE,URINE CLEAR (Clear); BILIRUBIN,URINE NEGATIVE (Negative); COLOR,URINE YELLOW (Yellow); GLUCOSE,URINE NEGATIVE (Negative); KETONES,URINE NEGATIVE (Negative); LEUKOCYTE ESTERASE,URINE TRACE (Negative); NITRITE,URINE NEGATIVE (Negative); OCCULT BLOOD,URINE 2+ (Negative); PH,URINE 5.5 (5.0-8.0); PROTEIN,URINE NEGATIVE (Negative); UROBILINOGEN,URINE 0.2 (0.2-1.0)
[2024-05-26] MEDS ORDERED: Lactated Ringers 1,000 ML ONE (08:49)
[2024-05-26] MEDS ORDERED: fentaNYL 100 MCG/2 ML SDV IVPUSH PRN (08:55)
[2024-05-26] MEDS ORDERED: Ondansetron 4 MG/2 ML SDV IVPUSH PRN (08:55)
[2024-05-26] MEDS ORDERED: HYDROmorphone 0.5 MG/0.5 ML Syringe ONE (08:56)
[2024-05-26 09:04] LABS: BACTERIA,URINE FEW /hpf (FEW); MUCUS,URINE NOT SEEN /hpf (FEW); RBC,URINE 0-5 /hpf (0-5); WBC,URINE 0-5 /hpf (0-5)
[2024-05-26] MEDS ORDERED: ePHEDrine 50 MG/ML SDV ONE (09:09)
[2024-05-26] MEDS ORDERED: Neostigmine Methylsulfate 10 MG/10 ML MDV ONE (09:32)
[2024-05-26] MEDS ORDERED: Ketorolac 30 MG/ML SDV ONE (09:45)
[2024-05-26] MEDS: Bupivacaine 0.5% 30 ML SDV ONE (09:49)
[2024-05-26] MEDS: EPINEPHrine 1 MG/ML SDV ONE (10:40)
[2024-05-26] MEDS: Bupivacaine 0.25% 10 ML SDV ONE (10:40)
[2024-05-26] MEDS: HYDROmorphone 0.5 MG/0.5 ML Syringe IVPUSH PRN (11:53)
[2024-05-26] MEDS: Acetaminophen/oxyCODONE 325-5 MG Tab PO PRN (12:31)
== END 2024-05-26 13:55 | disposition home or self-care (01) ==
LOC: JD.SDS 07:33
PROVIDERS: ATTEND Obstetrics & Gynecology
DX: D25.9 Leiomyoma of uterus, unspecified (principal); N72 Inflammatory disease of cervix uteri; N87.9 Dysplasia of cervix uteri, unspecified; N94.89 Other specified conditions associated with female genital organs and menstrual cycle; N83.8 Other noninflammatory disorders of ovary, fallopian tube and broad ligament; F17.210 Nicotine dependence, cigarettes, uncomplicated; Z79.899 Other long term (current) drug therapy
CPT/HCPCS: 36415; 58554; 81001; 81025; 86850; 86900; 86901; 87086; A9270; J0171; J0665; J0690; J1100; J1170; J1885; J2250; J2405; J2704; J2710; J3010; J3490; J7120; 00944

== ENCOUNTER 2024-09-26 22:58 | Emergency (ER) | payer MEDICAID ==
[2024-09-26] MEDS: Sodium Chloride 0.9% 10 ML Syringe FLUSH PRN (23:24)
[2024-09-26] MEDS: Sodium Chloride 0.9% 1,000 ML IV SCH (23:24)
[2024-09-26 23:35] LABS: BASOPHILS PERCENT AUTO 0.5 % (0.0-1.0); EOSINOPHILS PERCENT AUTO 0.4 % (0.0-6.0); HEMOGLOBIN 15.4 gm/dl (12.0-16.0); IMMATURE GRAN ABSOLUTE AUTO 0.02 K/mm3 (0.00-0.05); IMMATURE GRAN PERCENT AUTO 0.2 % (0.0-0.4); LYMPHOCYTES ABSOLUTE AUTO 2.9 K/mm3 (1.0-4.8); LYMPHOCYTES PERCENT AUTO 35.2 % (24.0-44.0); MEAN CORPUSCULAR HEMOGLOBIN 31.4 pg (28.0-32.0); MEAN CORPUSCULAR HGB CONC 35.8 g/dl (32.0-36.0); MEAN CORPUSCULAR VOLUME 87.8 fl (83.0-99.0); MEAN PLATELET VOLUME 8.4 fl (9.4-12.3); MONOCYTES ABSOLUTE AUTO 0.5 K/mm3 (0.0-0.8); MONOCYTES PERCENT AUTO 5.6 % (0.0-8.0); NEUTROPHILS ABSOLUTE AUTO 4.8 K/mm3 (1.8-7.7); NEUTROPHILS PERCENT AUTO 58.1 % (41.0-71.0); PLATELET COUNT,PLT 285 K/mm3 (150-400); WHITE BLOOD CELL COUNT,WBC 8.18 K/mm3 (3.9-11.3)
[2024-09-27 00:04] LABS: A/G RATIO 1.2 (1-2); ALBUMIN 4.1 g/dl (3.4-5.0); ANION GAP 16.6 (5-15); BILIRUBIN TOTAL 0.5 mg/dL (0.2-1.0); BUN/CREATININE RATIO 12.9 (14-18); CALCIUM 8.4 mg/dL (8.5-10.1); CREATININE 0.7 mg/dL (0.55-1.02); EST CRCL DRUG DOSING (CG) 90.74 mL/min; ETHANOL BLOOD MEDICAL 0.18 gm% (0.00); POTASSIUM,K 3.6 mEq/L (3.5-5.1); PROTEIN TOTAL,TP 7.6 g/dl (6.4-8.2)
[2024-09-27 04:18] LABS: BARBITURATE SCREEN,URINE NEGATIVE (CUTOFF=200); BENZODIAZEPINES SCREEN,URINE NEGATIVE (CUTOFF=150); BUPRENORPHINE SCREEN,URINE NEGATIVE (CUTOFF=10); METHADONE SCREEN, URINE NEGATIVE (CUTOFF=200); METHAMPHETAMINES SCREEN, URINE NEGATIVE (CUTOFF=500); OXYCODONE SCREEN,URINE NEGATIVE (CUT0FF=100); THC SCREEN,URINE 20 NG/ML PRESUMPTIVE POSITIVE (CUTOFF=50)
[2024-09-27 04:19] LABS: AMPHETAMINES SCREEN, URINE NEGATIVE (CUTOFF=500)
[2024-09-27] MEDS: Lidocaine 1% 10 ML MDV INJECT ONE (06:24)
[2024-09-27] MEDS: Acetaminophen 325 MG Tab PO ONE (06:24)
[2024-09-27] MEDS: LORazepam 0.5 MG Tab PO ONE (06:25)
== END 2024-09-27 07:23 | disposition home or self-care (01) ==
LOC: JD.ED 22:58
DX: T51.92XA Toxic effect of unspecified alcohol, intentional self-harm, initial encounter (principal); S61.511A Laceration without foreign body of right wrist, initial encounter; F10.921 Alcohol use, unspecified with intoxication delirium; F17.210 Nicotine dependence, cigarettes, uncomplicated; Z79.899 Other long term (current) drug therapy; X78.9XXA Intentional self-harm by unspecified sharp object, initial encounter
CPT/HCPCS: 12001; 36415; 80053; 80143; 80179; 80306; 80307; 85025; 93005; 99285; A9270; J3490; J7030; 93010

== ENCOUNTER 2024-12-31 18:40 | Emergency (ER) | payer OTHER, MEDICAID ==
[2024-12-31] MEDS ORDERED: Sodium Chloride 0.9% 10 ML Syringe FLUSH PRN (19:14)
[2024-12-31 19:32] LABS: BASOPHILS ABSOLUTE AUTO 0.1 K/mm3 (0.0-0.2); BASOPHILS PERCENT AUTO 0.5 % (0.0-1.0); EOSINOPHILS ABSOLUTE AUTO 0.1 K/mm3 (0.0-0.4); EOSINOPHILS PERCENT AUTO 1.3 % (0.0-6.0); HEMATOCRIT 40.8 % (37.0-47.0); HEMOGLOBIN 14.5 gm/dl (12.0-16.0); IMMATURE GRAN ABSOLUTE AUTO 0.03 K/mm3 (0.00-0.05); IMMATURE GRAN PERCENT AUTO 0.3 % (0.0-0.4); LYMPHOCYTES ABSOLUTE AUTO 3.9 K/mm3 (1.0-4.8); LYMPHOCYTES PERCENT AUTO 37.5 % (24.0-44.0); MEAN CORPUSCULAR HGB CONC 35.5 g/dl (32.0-36.0); MEAN CORPUSCULAR VOLUME 95.6 fl (83.0-99.0); MEAN PLATELET VOLUME 8.5 fl (9.4-12.3); MONOCYTES ABSOLUTE AUTO 0.6 K/mm3 (0.0-0.8); MONOCYTES PERCENT AUTO 5.7 % (0.0-8.0); NEUTROPHILS ABSOLUTE AUTO 5.7 K/mm3 (1.8-7.7); NEUTROPHILS PERCENT AUTO 54.7 % (41.0-71.0); PLATELET COUNT,PLT 257 K/mm3 (150-400); RED BLOOD CELL COUNT 4.27 M/mm3 (4.10-5.30); WHITE BLOOD CELL COUNT,WBC 10.49 K/mm3 (3.9-11.3)
[2024-12-31 19:50] LABS: ALBUMIN 3.6 g/dl (3.4-5.0); ANION GAP 11.7 (5-15); CALCIUM 8.1 mg/dL (8.5-10.1); CREATININE 1.1 mg/dL (0.55-1.02); EST CRCL DRUG DOSING (CG) 59.63 mL/min; POTASSIUM,K 3.7 mEq/L (3.5-5.1); PROTEIN TOTAL,TP 6.7 g/dl (6.4-8.2)
[2024-12-31 19:51] LABS: A/G RATIO 1.2 (1-2); BILIRUBIN TOTAL 0.5 mg/dL (0.2-1.0); MAGNESIUM 1.5 mg/dL (1.8-2.4); TSH 12.922 uIU/mL (0.358-3.74)
[2024-12-31] MEDS: Sodium Chloride 0.9% 1,000 ML IV ONE (20:02)
[2024-12-31 20:10] LABS: T4 FREE 0.81 ng/dL (0.76-1.46)
[2024-12-31] MEDS: LORazepam 1 MG Tab PO ONE (20:15)
[2024-12-31 20:52] LABS: APPEARANCE,URINE CLEAR (Clear); BILIRUBIN,URINE NEGATIVE (Negative); COLOR,URINE YELLOW (Yellow); GLUCOSE,URINE NEGATIVE (Negative); KETONES,URINE NEGATIVE (Negative); LEUKOCYTE ESTERASE,URINE NEGATIVE (Negative); NITRITE,URINE NEGATIVE (Negative); OCCULT BLOOD,URINE NEGATIVE (Negative); PH,URINE 6.5 (5.0-8.0); PROTEIN,URINE NEGATIVE (Negative); UROBILINOGEN,URINE 0.2 (0.2-1.0)
[2024-12-31 21:01] LABS: BARBITURATE SCREEN,URINE NEGATIVE (CUTOFF=200); BENZODIAZEPINES SCREEN,URINE NEGATIVE (CUTOFF=150); BUPRENORPHINE SCREEN,URINE NEGATIVE (CUTOFF=10); METHADONE SCREEN, URINE NEGATIVE (CUTOFF=200); METHAMPHETAMINES SCREEN, URINE NEGATIVE (CUTOFF=500); OXYCODONE SCREEN,URINE NEGATIVE (CUT0FF=100); THC SCREEN,URINE 20 NG/ML NEGATIVE (CUTOFF=50)
[2024-12-31 21:05] LABS: AMPHETAMINES SCREEN, URINE NEGATIVE (CUTOFF=500)
[2024-12-31] MEDS: Magnesium Oxide 400 MG Tab PO SCH (22:00)
[2024-12-31] MEDS: Calcium Carbonate 500 MG Tab.Chew PO SCH (22:00)
== END 2024-12-31 21:57 | disposition home or self-care (01) ==
LOC: JD.ED 18:40
DX: G40.909 Epilepsy, unspecified, not intractable, without status epilepticus (principal); F17.210 Nicotine dependence, cigarettes, uncomplicated; Z79.899 Other long term (current) drug therapy
CPT/HCPCS: 36415; 80053; 80306; 81003; 83735; 84439; 84443; 84703; 85025; 87428; 96360; 99284; A9270; J7030

== ENCOUNTER 2025-01-15 16:36 | Emergency (ER) | payer MEDICAID ==
[2025-01-15 16:52] LABS: BASOPHILS PERCENT AUTO 0.4 % (0.0-1.0); EOSINOPHILS ABSOLUTE AUTO 0.1 K/mm3 (0.0-0.4); EOSINOPHILS PERCENT AUTO 1.1 % (0.0-6.0); HEMATOCRIT 39.1 % (37.0-47.0); HEMOGLOBIN 13.5 gm/dl (12.0-16.0); IMMATURE GRAN ABSOLUTE AUTO 0.03 K/mm3 (0.00-0.05); IMMATURE GRAN PERCENT AUTO 0.4 % (0.0-0.4); LYMPHOCYTES ABSOLUTE AUTO 2.9 K/mm3 (1.0-4.8); LYMPHOCYTES PERCENT AUTO 36.5 % (24.0-44.0); MEAN CORPUSCULAR HEMOGLOBIN 33.8 pg (28.0-32.0); MEAN CORPUSCULAR HGB CONC 34.5 g/dl (32.0-36.0); MEAN CORPUSCULAR VOLUME 97.8 fl (83.0-99.0); MEAN PLATELET VOLUME 9.1 fl (9.4-12.3); MONOCYTES ABSOLUTE AUTO 0.7 K/mm3 (0.0-0.8); MONOCYTES PERCENT AUTO 8.2 % (0.0-8.0); NEUTROPHILS ABSOLUTE AUTO 4.3 K/mm3 (1.8-7.7); NEUTROPHILS PERCENT AUTO 53.4 % (41.0-71.0); PLATELET COUNT,PLT 210 K/mm3 (150-400); WHITE BLOOD CELL COUNT,WBC 8.06 K/mm3 (3.9-11.3)
[2025-01-15] MEDS: Lactated Ringers 1,000 ML IV ONE (17:19)
[2025-01-15 17:40] LABS: A/G RATIO 1.2 (1-2); ALANINE AMINOTRANSFERASE,ALT 25 U/L (14-59); ALBUMIN 3.6 g/dl (3.4-5.0); ALKALINE PHOSPHATASE 50 U/L (46-116); ANION GAP 16.6 (5-15); ASPARTATE AMNIOTRANSFERASE,AST 28 U/L (15-37); BILIRUBIN TOTAL 0.8 mg/dL (0.2-1.0); BLOOD UREA NITROGEN,BUN 9 mg/dL (7-18); CALCIUM 9.1 mg/dL (8.5-10.1); CARBON DIOXIDE,CO2 22 mEq/L (21-32); CHLORIDE,CL 99 mEq/L (98-107); ESTIMATED GFR 72 mL/min (>60); GLUCOSE RANDOM 122 mg/dL (70-99); PROTEIN TOTAL,TP 6.6 g/dl (6.4-8.2); SODIUM,NA 134 mEq/L (136-145)
[2025-01-15] MEDS: LORazepam 1 MG Tab PO ONE (17:57)
[2025-01-15 17:59] LABS: POTASSIUM,K 3.6 mEq/L (3.5-5.1)
[2025-01-15 18:15] LABS: APPEARANCE,URINE SLT CLOUDY (Clear); BILIRUBIN,URINE NEGATIVE (Negative); COLOR,URINE YELLOW (Yellow); GLUCOSE,URINE NEGATIVE (Negative); KETONES,URINE NEGATIVE (Negative); LEUKOCYTE ESTERASE,URINE 1+ (Negative); NITRITE,URINE NEGATIVE (Negative); OCCULT BLOOD,URINE TRACE-LYSED (Negative); PROTEIN,URINE TRACE (Negative); UROBILINOGEN,URINE 0.2 (0.2-1.0)
[2025-01-15 18:20] LABS: T4 FREE 0.76 ng/dL (0.76-1.46)
[2025-01-15 18:27] LABS: BARBITURATE SCREEN,URINE NEGATIVE (CUTOFF=200); BENZODIAZEPINES SCREEN,URINE NEGATIVE (CUTOFF=150); BUPRENORPHINE SCREEN,URINE NEGATIVE (CUTOFF=10); METHADONE SCREEN, URINE NEGATIVE (CUTOFF=200); METHAMPHETAMINES SCREEN, URINE NEGATIVE (CUTOFF=500); OXYCODONE SCREEN,URINE NEGATIVE (CUT0FF=100); THC SCREEN,URINE 20 NG/ML PRESUMPTIVE POSITIVE (CUTOFF=50)
[2025-01-15 18:28] LABS: AMPHETAMINES SCREEN, URINE NEGATIVE (CUTOFF=500)
[2025-01-15 18:38] LABS: BACTERIA,URINE MANY /hpf (FEW); MUCUS,URINE FEW /hpf (FEW); RBC,URINE 0-5 /hpf (0-5); SQUAMOUS EPITHELIAL CELLS,UR 0-5 /hpf (0-5)
[2025-01-15] MEDS: cefTRIAXone 1 GM Vial IVPUSH ONE (19:57)
[2025-01-15] MEDS: levETIRAcetam 500 MG/5 ML SDV IVPUSH ONE (20:02)
== END 2025-01-15 20:10 | disposition home or self-care (01) ==
LOC: JD.ED 16:36
DX: R56.9 Unspecified convulsions (principal); F17.210 Nicotine dependence, cigarettes, uncomplicated; Z79.899 Other long term (current) drug therapy
CPT/HCPCS: 36415; 70450; 70450-26; 80053; 80306; 80307; 81001; 83605; 84439; 84443; 85025; 96361; 96374; 96375; 99285-25; A9270-GY; J0696; J1953; J7120

== ENCOUNTER 2025-04-01 19:03 | Emergency (ER) | payer OTHER, BC, MEDICAID ==
[2025-04-01] MEDS: Acetaminophen/oxyCODONE 325-5 MG Tab PO ONE (20:17)
[2025-04-01] MEDS: Ondansetron 4 MG Tab.DIS PO ONE (20:18)
== END 2025-04-01 21:26 | disposition home or self-care (01) ==
LOC: JD.ED 19:03
DX: S42.032A Displaced fracture of lateral end of left clavicle, initial encounter for closed fracture (principal); S42.022A Displaced fracture of shaft of left clavicle, initial encounter for closed fracture; S00.83XA Contusion of other part of head, initial encounter; Z79.899 Other long term (current) drug therapy; V86.55XA Driver of 3- or 4- wheeled all-terrain vehicle (ATV) injured in nontraffic accident, initial encounter; Y93.89 Activity, other specified
CPT/HCPCS: 73000; 99283; A9270; 99284

== ENCOUNTER 2025-04-07 08:48 | Day surgery (SDC) | payer OTHER, MEDICAID ==
[~2025-04-07 08:48] MED LIST changes: -Dexamethasone 4 MG/ML 5 ML MDV ONE; -Lidocaine 1% 5 ML VIAL ONE; -Midazolam 1 MG/ML 2 ML SDV ONE; -Ondansetron 4 MG/2 ML SDV ONE; -Propofol 200 MG/20 ML SDV ONE; -Rocuronium 50 MG/5 ML Vial ONE; -ceFAZolin 2 GM Vial ONE; -dexmedeTOMIDine HCl 200 MCG/2 ML SDV ONE; -fentaNYL 250 MCG/5 ML SDV ONE
[2025-04-07] MEDS: Lactated Ringers 1,000 ML IV SCH (09:15)
[2025-04-07] MEDS ORDERED: fentaNYL 100 MCG/2 ML SDV ONE ×2 (10:31→11:59)
[2025-04-07] MEDS ORDERED: Midazolam 1 MG/ML 2 ML SDV ONE (10:31)
[2025-04-07] MEDS ORDERED: Ropivacaine 0.5% 5 MG/ML 30 ML SDV ONE (10:32)
[2025-04-07] MEDS: Albuterol/Ipratropium 3.0-0.5 MG/3 ML Neb Soln NEB ONE (11:17)
[2025-04-07] MEDS ORDERED: propofoL 500 MG/50 ML 50 ML ONE (11:18)
[2025-04-07] MEDS ORDERED: dexmedeTOMIDine HCl 200 MCG/2 ML SDV ONE (11:20)
[2025-04-07] MEDS ORDERED: Glycopyrrolate 0.2 MG/ML 2 ML SDV ONE (11:20)
[2025-04-07] MEDS ORDERED: Dexamethasone 4 MG/ML 5 ML MDV ONE (11:20)
[2025-04-07] MEDS ORDERED: Sodium Chloride 0.9% 100 ML ONE (11:20)
[2025-04-07] MEDS ORDERED: Rocuronium 50 MG/5 ML Vial ONE (11:20)
[2025-04-07] MEDS ORDERED: Esmolol 100 MG/10 ML SDV ONE (11:33)
[2025-04-07] MEDS ORDERED: Labetalol 100 MG/20 ML MDV ONE (11:33)
[2025-04-07] MEDS ORDERED: Ketamine 200 MG/20 ML MDV ONE (11:40)
[2025-04-07] MEDS ORDERED: Metoprolol Tartrate 5 MG/5 ML SDV ONE (11:41)
[2025-04-07] MEDS ORDERED: ceFAZolin 2 GM Vial ONE (11:41)
[2025-04-07] MEDS ORDERED: Lactated Ringers 1,000 ML ONE (12:01)
[2025-04-07] MEDS ORDERED: Sugammadex Sodium 200 MG/2 ML VIAL IV ONE (12:23)
[2025-04-07] MEDS ORDERED: fentaNYL 100 MCG/2 ML SDV IVPUSH PRN (13:19)
[2025-04-07] MEDS ORDERED: Ondansetron 4 MG/2 ML SDV IVPUSH PRN (13:19)
[2025-04-07] MEDS: HYDROmorphone 0.5 MG/0.5 ML Syringe IVPUSH PRN (13:24)
[2025-04-07] MEDS: Ketorolac 30 MG/ML SDV IVPUSH ONE (13:31)
[2025-04-07] MEDS: Acetaminophen Soln 650 MG/20.3 ML UD Cup PO ONE (13:34)
== END 2025-04-07 14:35 | disposition home or self-care (01) ==
LOC: JD.SDS 08:48
PROVIDERS: ATTEND Orthopaedic Surgery
DX: S42.022A Displaced fracture of shaft of left clavicle, initial encounter for closed fracture (principal); Z79.899 Other long term (current) drug therapy; V89.2XXA Person injured in unspecified motor-vehicle accident, traffic, initial encounter
CPT/HCPCS: 23515; 76000; A9270; C1713; J0690; J1100; J1596; J1805; J1885; J2250; J2704; J2795; J3010; J3490; J7120; J7620; J1920

== ENCOUNTER 2025-08-02 10:54 | Emergency (ER) | payer MEDICAID, OTHER ==
[2025-08-02] MEDS: Ondansetron 4 MG/2 ML SDV IVPUSH ONE (11:43)
[2025-08-02 11:50] LABS: MEAN PLATELET VOLUME 8.3 fl (9.4-12.3); NRBC ABSOLUTE 0.00 (0.00-0.02); NRBC PERCENT 0.0 % (0.0-0.2); RED BLOOD CELL COUNT 4.62 M/mm3 (4.10-5.30); WHITE BLOOD CELL COUNT,WBC 9.34 K/mm3 (3.9-11.3)
[2025-08-02 11:55] LABS: PLATELET COUNT,PLT 372 K/mm3 (150-400)
[2025-08-02 12:18] LABS: BAND PERCENT MAN 0 % (0-10); BASOPHILS PERCENT MAN 0 (0.1-1.2); EOSINOPHILS PERCENT MAN 0 % (0.7-5.8); LYMPHOCYTES % ATYPICAL MANUAL 0 %; LYMPHOCYTES PERCENT MAN 23 % (20-40); MONOCYTES PERCENT MAN 3 % (2-10); PLATELET COUNT ESTIMATE ADEQUATE
[2025-08-02 12:24] LABS: A/G RATIO 1.2 (1-2); ALANINE AMINOTRANSFERASE,ALT 36.0 U/L (14-59); ASPARTATE AMNIOTRANSFERASE,AST 53.0 U/L (15-37); BILIRUBIN TOTAL 0.5 mg/dL (0.2-1.0); BLOOD UREA NITROGEN,BUN 9.0 mg/dL (7-18); CARBON DIOXIDE,CO2 23.0 mEq/L (21-32); CHLORIDE,CL 102.0 mEq/L (98-107); CREATININE 0.9 mg/dL (0.55-1.02); EST CRCL DRUG DOSING (CG) 69.6 mL/min; ESTIMATED GFR 81.0 mL/min (>60); ETHANOL BLOOD MEDICAL 0.36 gm% (0.00); GLUCOSE RANDOM 165.0 mg/dL (70-99); PROTEIN TOTAL,TP 7.1 g/dl (6.4-8.2); SODIUM,NA 138.0 mEq/L (136-145); TSH 2.363 uIU/mL (0.358-3.74)
[2025-08-02 12:31] LABS: POTASSIUM,K 3.3 mEq/L (3.5-5.1)
[2025-08-02 13:20] LABS: BUPRENORPHINE SCREEN,URINE NEGATIVE (CUTOFF=10); METHADONE SCREEN, URINE NEGATIVE (CUTOFF=200); METHAMPHETAMINES SCREEN, URINE NEGATIVE (CUTOFF=500); OXYCODONE SCREEN,URINE NEGATIVE (CUT0FF=100); THC SCREEN,URINE 20 NG/ML NEGATIVE (CUTOFF=50)
[2025-08-02 13:23] LABS: AMPHETAMINES SCREEN, URINE NEGATIVE (CUTOFF=500)
== END 2025-08-02 18:26 | disposition home or self-care (01) ==
LOC: JD.ED 10:54
DX: F10.10 Alcohol abuse, uncomplicated (principal); F17.200 Nicotine dependence, unspecified, uncomplicated
CPT/HCPCS: 36415; 80053; 80143; 80179; 80306; 80307; 81025; 83690; 83735; 84443; 85007; 85027; 93005; 93010; 96361; 96374; 99283; 99284-25; J2405; J7030

== ENCOUNTER 2025-11-02 14:27 | Emergency (ER) | payer OTHER, MEDICAID ==
[2025-11-02] MEDS ORDERED: Sodium Chloride 0.9% 10 ML Syringe FLUSH PRN (14:32)
[2025-11-02] MEDS: Ondansetron 4 MG/2 ML SDV IVPUSH ONE (14:51)
[2025-11-02 14:56] LABS: BASOPHILS ABSOLUTE AUTO 0.0 K/mm3 (0.0-0.2); BASOPHILS PERCENT AUTO 0.4 % (0.0-1.0); EOSINOPHILS ABSOLUTE AUTO 0.0 K/mm3 (0.0-0.4); EOSINOPHILS PERCENT AUTO 0.1 % (0.0-6.0); IMMATURE GRAN ABSOLUTE AUTO 0.01 K/mm3 (0.00-0.05); IMMATURE GRAN PERCENT AUTO 0.1 % (0.0-0.4); LYMPHOCYTES ABSOLUTE AUTO 3.5 K/mm3 (1.0-4.8); LYMPHOCYTES PERCENT AUTO 50.6 % (24.0-44.0); MEAN PLATELET VOLUME 8.4 fl (9.4-12.3); MONOCYTES ABSOLUTE AUTO 0.3 K/mm3 (0.0-0.8); MONOCYTES PERCENT AUTO 4.7 % (0.0-8.0); NEUTROPHILS ABSOLUTE AUTO 3.0 K/mm3 (1.8-7.7); NEUTROPHILS PERCENT AUTO 44.1 % (41.0-71.0); NRBC ABSOLUTE 0.00 (0.00-0.02); NRBC PERCENT 0.0 % (0.0-0.2); PLATELET COUNT,PLT 327 K/mm3 (150-400); RED BLOOD CELL COUNT 4.51 M/mm3 (4.10-5.30); WHITE BLOOD CELL COUNT,WBC 6.86 K/mm3 (3.9-11.3)
[2025-11-02 15:19] LABS: A/G RATIO 1.1 (1-2); ALANINE AMINOTRANSFERASE,ALT 33 U/L (14-59); ASPARTATE AMNIOTRANSFERASE,AST 46 U/L (15-37); BILIRUBIN TOTAL 0.4 mg/dL (0.2-1.0); BLOOD UREA NITROGEN,BUN 5 mg/dL (7-18); CARBON DIOXIDE,CO2 27 mEq/L (21-32); CHLORIDE,CL 103 mEq/L (98-107); CREATININE 0.7 mg/dL (0.55-1.02); ESTIMATED GFR 110 mL/min (>60); ETHANOL BLOOD MEDICAL 0.35 gm% (0.00); GLUCOSE RANDOM 87 mg/dL (70-99); POTASSIUM,K 3.5 mEq/L (3.5-5.1); PROTEIN TOTAL,TP 7.6 g/dl (6.4-8.2); SODIUM,NA 143 mEq/L (136-145)
[2025-11-02 16:08] LABS: BUPRENORPHINE SCREEN,URINE NEGATIVE (CUTOFF=10); METHADONE SCREEN, URINE NEGATIVE (CUTOFF=200); METHAMPHETAMINES SCREEN, URINE NEGATIVE (CUTOFF=500); OXYCODONE SCREEN,URINE NEGATIVE (CUT0FF=100); THC SCREEN,URINE 20 NG/ML PRESUMPTIVE POSITIVE (CUTOFF=50)
[2025-11-02 16:09] LABS: AMPHETAMINES SCREEN, URINE NEGATIVE (CUTOFF=500)
[2025-11-02] MEDS: Lactated Ringers 1,000 ML IV ONE (16:20)
[2025-11-02] MEDS: LORazepam 2 MG/ML SDV IVPUSH ONE (17:34)
== END 2025-11-02 22:07 | disposition home or self-care (01) ==
LOC: JD.ED 14:27
DX: F10.129 Alcohol abuse with intoxication, unspecified (principal); E86.0 Dehydration; Z79.899 Other long term (current) drug therapy; Z90.89 Acquired absence of other organs; Y90.0 Blood alcohol level of less than 20 mg/100 ml
CPT/HCPCS: 36415; 80053; 80143; 80179; 80306; 80307; 81025; 85025; 93005; 96361; 96374; 96375; 99284; C1758; J2060; J2405; J7030; J7120; 93010